=== PATIENT | female | born 1985 | race Caucasian/White ===

== ENCOUNTER → 2016-03-20 | Outpatient (CLI) | payer OTHER ==
--- NOTE | 2016-03-20 17:39 | DX ---
Chest, Two Views at 0 833 hours History: Right-sided thoracic pain. M 54.6 Comparison: None. Findings: Cardiac silhouette is within normal range. Moderate thoracic dextroscoliosis. No pneumonia, congestive heart failure, pleural effusion, or pneumothorax. No congenital rib abnormalities. Impression: 1. Thoracic dextroscoliosis. 2. No acute pulmonary disease.
== END ==
LOC: FIMAGING 08:29
PROVIDERS: ATTEND Family Medicine
DX: M54.6 Pain in thoracic spine (principal)

== ENCOUNTER 2016-08-13 16:48 | Emergency (ER) | payer OTHER ==
[2016-08-13 17:17] VITALS: RESP 16
[2016-08-13] MEDS ORDERED: fentaNYL 100 MCG/2 ML INJ IVP ONE (17:24)
[2016-08-13] MEDS ORDERED: NS 1,000 ML IV ONE (17:24)
[2016-08-13] MEDS ORDERED: ONDANSETRON 4 MG/2 ML VIAL IVP ONE (17:24)
--- NOTE | 2016-08-13 17:29 | EDPHY ---
H & P Stated Complaint: DIARRHEA Time Seen by Provider: 08/13/16 17:23 HPI/ROS: CHIEF COMPLAINT: I think I have food poisoning HISTORY OF PRESENT ILLNESS: 30-year-old female who return from [place] 4 days ago. She was fine while she was traveling. When she returned, she 8 a brought worse from her refrigerator. Approximately 8 hours later she developed significant abdominal crampy discomfort and gas. She was nauseous. She is concerned that she may have developed food poisoning from this brought worse. Patient continued with significant abdominal discomfort, very gassy, passing large amounts of gas, and quite nauseous for another day. Yesterday she developed some diarrhea and now has been having diarrhea approximately every 60 minutes. No vomiting although she states she has been very nauseous. She reports her abdomen feels distended. She reports a low-grade temperature at 99.5degrees. Also reporting body aches. Denies any chest pain or shortness of breath. Denies palpitations, near syncope , syncopal episode. Denies any urinary complaints or headache. She has been drinking Gatorade and water in an attempt to avoid dehydration. She reports diminished appetite secondary to significant nausea REVIEW OF SYSTEMS: Aside from elements discussed in the HPI, a comprehensive 10-point review of systems was reviewed and is negative. PAST MEDICAL HISTORY: Patient denies. SOCIAL HISTORY: . VITAL SIGNS Reviewed by me. GENERAL: Well-developed, well-nourished, resting comfortably in no respiratory distress. HEENT: Atraumatic. Eyes: No icterus, no injection. Mouth: Slightly dry mucous membranes. No erythema or lesions. Neck: supple with no adenopathy. LUNGS: Clear to auscultation bilaterally, no wheezes, rhonchi or rales. CARDIAC: Regular rate and rhythm, no rubs, murmurs or gallops. ABDOMEN: Soft, moderately distended, hyperactive bowel sounds, nontender, no guarding or rebound. BACK: No CVA tenderness. EXTREMITIES: No trauma. No edema. Range of motion is normal throughout. NEURO: Alert and oriented, grossly nonfocal. SKIN: Warm and dry, no rash. PSYCHIATRIC: Normal mentation, no agitation. - Personal History LMP (Females 10-55): 15-21 Days Ago Current Tetanus/Diphtheria Vaccine: Yes - Medical/Surgical History Hx Asthma: No Hx Chronic Respiratory Disease: No Hx Diabetes: No Hx Cardiac Disease: No Hx Renal Disease: No Hx Cirrhosis: No Hx Alcoholism: No Hx HIV/AIDS: No Hx Splenectomy or Spleen Trauma: No Other PMH: DENIES PMH. DENIES PSH - Social History Smoking Status: Never smoked Constitutional: Initial Vital Signs Temperature (C) 36.6 C 08/13/16 17:00 Heart Rate 70 08/13/16 17:00 Respiratory Rate 16 08/13/16 17:00 Blood Pressure 135/92 H 08/13/16 17:00 O2 Sat (%) 100 08/13/16 17:00 O2 Delivery Mode Room Air Allergies/Adverse Reactions: No Known Allergies Allergy (Unverified 08/13/16 17:09) Home Medications: Medication Instructions Recorded Fexofenadine HCl [Mindy Allergy] 60 mg PO 08/13/16 Fluticasone Propionate [Flonase 9.9 ml NS 08/13/16 Allergy Relief] Ondansetron Odt [Zofran Odt 4 mg 4 mg PO Q6 PRN #8 tab 08/13/16 (RX)] Medical Decision Making ED Course/Re-evaluation: IV established. Patient received normal saline, fentanyl for gassy discomfort, and Zofran. Labs demonstrate largely normal electrolytes with the exception of a potassium of 3.3. CO2 is 23 and anion gap is normal. Patient has a white count of 3.46. Patient was able to provide a stool sample. It is positive for occult blood, and is greenish in appearance. 6:20 p.m.: Patient is feeling improved. She does report however having 3 bouts of diarrhea while in the emergency department. Given the frequency of her stooling as well as her low-grade temperature on arrival, I suggest the patient should be started on ciprofloxacin. Stool cultures are currently pending. Patient was also instructed regarding the use of Imodium. She understands the importance of remaining hydrated. She will follow up with her primary care physician if she is not improving as expected. Differential Diagnosis: Differential diagnosis for the patient's diarrhea was considered including but not limited to gastroenteritis, colitis, diverticulitis, bacterial dysentery, viral diarrhea, medication effect, and malabsorption syndrome. - Data Points Laboratory Results: Laboratory Results 08/13/16 17:20 08/13/16 17:20 08/13/16 08/13/16 08/13/16 17:40 17:20 17:20 WBC RBC Hgb Hct MCV MCH MCHC RDW Plt Count MPV Neut % (Auto) Lymph % (Auto) [place] % (Auto) Eos % (Auto) Baso % (Auto) Nucleat RBC Rel Count Absolute Neuts (auto) Absolute Lymphs (auto) Absolute Monos (auto) Absolute Eos (auto) Absolute Basos (auto) Absolute Nucleated RBC Immature Gran % Seg Neutrophils % Band Neutrophils % Lymphocytes % Monocytes % Eosinophils % Basophils % Immature Gran # Absolute Seg Neuts Absolute Band Neuts Absolute Lymphocytes Absolute Monocytes Absolute Eosinophils Absolute Basophils Atypical Lymphocytes Platelet Estimate Sodium 138 mEq/L mEq/L (134-144) Potassium 3.3 mEq/L L mEq/L (3.5-5.2) Chloride 103 mEq/L mEq/L (97-110) Carbon Dioxide 23 mEq/l mEq/l (22-31) Anion Gap 12 mEq/L mEq/L (8-16) BUN 4 mg/dL L mg/dL (7-23) Creatinine 0.6 mg/dL mg/dL (0.6-1.0) Estimated GFR > 60 Glucose 78 mg/dL mg/dL (70-100) Calcium 8.0 mg/dL L mg/dL (8.5-10.4) Beta HCG, Qual NEGATIVE Stool Occult Bld Scrn POSITIVE H (NEGATIVE) 08/13/16 17:20 WBC 3.46 10^3/uL L 10^3/uL (3.80-9.50) RBC 4.00 10^6/uL L 10^6/uL (4.18-5.33) Hgb 13.3 g/dL g/dL (12.6-16.3) Hct 38.7 % % (38.0-47.0) MCV 96.8 fL fL (81.5-99.8) MCH 33.3 pg pg (27.9-34.1) MCHC 34.4 g/dL g/dL (32.4-36.7) RDW 13.2 % % (11.5-15.2) Plt Count 199 10^3/uL 10^3/uL (150-400) MPV 8.8 fL fL (8.7-11.7) Neut % (Auto) Not Reported Lymph % (Auto) Not Reported [place] % (Auto) Not Reported Eos % (Auto) Not Reported Baso % (Auto) Not Reported Nucleat RBC Rel Count 0.0 % % (0.0-0.2) Absolute Neuts (auto) Not Reported Absolute Lymphs (auto) Not Reported Absolute Monos (auto) Not Reported Absolute Eos (auto) Not Reported Absolute Basos (auto) Not Reported Absolute Nucleated RBC 0.00 10^3/uL 10^3/uL (0-0.01) Immature Gran % Not Reported Seg Neutrophils % 49 % % Band Neutrophils % 13 % % Lymphocytes % 29 % % Monocytes % 5 % % Eosinophils % 3 % % Basophils % 1 % % Immature Gran # Not Reported Absolute Seg Neuts 1.7 K/MM3 L K/MM3 (1.8-7) Absolute Band Neuts 0.4 K/MM3 K/MM3 (0-0.7) Absolute Lymphocytes 1.0 K/mm3 K/mm3 (1.0-4.8) Absolute Monocytes 0.2 K/mm3 K/mm3 (0-0.8) Absolute Eosinophils 0.1 K/mm3 K/mm3 (0-0.5) Absolute Basophils 0.0 K/mm3 K/mm3 (0-0.2) Atypical Lymphocytes 1+ H Platelet Estimate ADEQUATE (ADEQ) Sodium Potassium Chloride Carbon Dioxide Anion Gap BUN Creatinine Estimated GFR Glucose Calcium Beta HCG, Qual Stool Occult Bld Scrn Microbiology Results: MICROBIOLOGY 08/13/16 17:40 Stool Gastrointestinal Tract Panel (PCR) - Preliminary 08/13/16 17:40 Stool Fecal Leukocyte Stain - Final Medications Given: Discontinued Medications Fentanyl (Sublimaze) 50 mcg IVP EDNOW ONE Stop: 08/13/16 17:25 Last Admin: 08/13/16 17:52 Dose: 50 mcg Sodium Chloride (Ns) 1,000 mls @ 0 mls/hr IV ONCE ONE; Wide Open PRN Reason: Protocol Stop: 08/13/16 17:25 Last Admin: 08/13/16 17:32 Dose: 1,000 mls Ondansetron HCl (Zofran) 4 mg IVP EDNOW ONE Stop: 08/13/16 17:25 Last Admin: 08/13/16 17:51 Dose: 4 mg Departure - Departure Disposition: Home, Routine, Self-Care Clinical Impression: Diarrhea Qualifiers: Diarrhea type: unspecified type Qualified Code(s): R19.7 - Diarrhea, unspecified Condition: Good Instructions: Acute Diarrhea (ED) Additional Instructions: For your diarrhea, I suggested you start with a bland diet and advance as tolerated. This means start with clear liquids such as water, Gatorade, juice, flat non- caffeinated soda. If you tolerate clear liquids, then you may add bland foods such as bananas, rice, or toast. If you do not have any worsening of your symptoms, you may begin to resume a regular diet. Your stool has been sent for culture. The stool is positive for occult blood. If you continue to have diarrhea for an additional 12-24 hours, I would recommend beginning ciprofloxacin. Okay to take Pepto-Bismol to help control the amount of diarrhea you are experiencing. You may use Imodium. Please return to the emergency department or follow up with her primary care physician if you're not improving as expected, if you have ongoing bloody diarrhea despite taking the ciprofloxacin, have significant abdominal pain, developed lightheadedness, dizziness, or fainting, or have other concerns. Referrals: Karol Esposito MD [Primary Care Provider] - As per Instructions Stand Alone Forms: Work Excuse Prescriptions: Ondansetron Odt [Zofran Odt 4 mg (RX)] 4 mg PO Q6 PRN #8 tab PRN Reason: Nausea
[2016-08-13 17:35] LABS: ADD MORPH? NO; FRAGMENT RBC FLAG 0 (0-99); HEMATOCRIT 38.7 % (38.0-47.0); HEMOGLOBIN 13.3 g/dL (12.6-16.3); LEFT SHIFT FLG 0 (0-99); LIPEMIA HEMOLYSIS FLAG 90 (0-99); MEAN CELL HEMOGLOBIN 33.3 pg (27.9-34.1); MEAN CELL HEMOGLOBIN CONCENTR. 34.4 g/dL (32.4-36.7); MEAN CELL VOLUME 96.8 fL (81.5-99.8); MEAN PLATELET VOLUME 8.8 fL (8.7-11.7); PLATELET CLUMPS FLAG 0 (0-99); PLATELET COUNT 199 10^3/uL (150-400); RED CELL DISTRIBUTION WIDTH 13.2 % (11.5-15.2)
[2016-08-13 17:36] LABS: ATYPICAL LYMPHOCYTE FLAG 170 (0-99)
[2016-08-13 17:39] LABS: ADD DIFF? YES; ADD SCAN? NO
[2016-08-13 17:48] LABS: ANION GAP 12 mEq/L (8-16); CARBON DIOXIDE 23 mEq/l (22-31); CHLORIDE 103 mEq/L (97-110); CREATININE 0.6 mg/dL (0.6-1.0); GLOMERULAR FILTRATION RATE > 60; GLUCOSE 78 mg/dL (70-100); POTASSIUM 3.3 mEq/L (3.5-5.2); SODIUM 138 mEq/L (134-144)
[2016-08-13 18:19] VITALS: BP 110/74; PULSE 64; TEMP 98.4; O2SAT 95
[2016-08-13 18:26] LABS: PLATELET ESTIMATE ADEQUATE (ADEQ)
== END 2016-08-13 18:42 | disposition home or self-care (01) ==
LOC: CED 16:48
DX: R19.7 Diarrhea, unspecified (principal); E86.9 Volume depletion, unspecified
CPT/HCPCS: 80048-PO; 82270-PO; 84703-PO; 85025-PO; 96374; J2405; J3010

== ENCOUNTER → 2016-12-18 | Outpatient (CLI) | payer OTHER | LOC: FIMAGING 12:23 | PROVIDERS: ATTEND Obstetrics & Gynecology | DX: Z36.89 Encounter for other specified antenatal screening (principal); Z3A.19 19 weeks gestation of pregnancy ==

== ENCOUNTER → 2017-01-15 | Outpatient (CLI) | payer OTHER | LOC: FIMAGING 12:13 | PROVIDERS: ATTEND Obstetrics & Gynecology | DX: Z34.92 Encounter for supervision of normal pregnancy, unspecified, second trimester (principal); Z82.79 Family history of other congenital malformations, deformations and chromosomal abnormalities; Z20.828 Contact with and (suspected) exposure to other viral communicable diseases; Z3A.23 23 weeks gestation of pregnancy ==

== ENCOUNTER → 2017-01-20 | Outpatient (CLI) | payer OTHER | LOC: FIMAGING 12:31 | PROVIDERS: ATTEND Obstetrics & Gynecology | DX: O09.92 Supervision of high risk pregnancy, unspecified, second trimester (principal); Z82.79 Family history of other congenital malformations, deformations and chromosomal abnormalities; Z3A.23 23 weeks gestation of pregnancy ==